=== PATIENT | female | born 1995 | race Caucasian/White ===

== ENCOUNTER → 2020-07-02 12:12 | Outpatient (CLI) | payer OTHER, SELFPAY ==
[2020-07-02 16:44] LABS: HIV 1 & 2 Ab/Ag 4th Gen Combo NEGATIVE (NEGATIVE)
[2020-07-03 04:36] LABS: RPR Screen Non Reactive (Non Reactive)
== END ==
PROVIDERS: PCP Family Medicine; Referring Provider Obstetrics & Gynecology; Visit Provider Obstetrics & Gynecology
DX: Z00.00 Encounter for general adult medical examination without abnormal findings (principal)
CPT/HCPCS: 36415; 86592; 87389; 87491; 87591

== ENCOUNTER 2020-12-21 12:11 | Emergency (ER) | payer OTHER, SELFPAY ==
[2020-12-21 12:30] VITALS: BP 133/78; PULSE 80; RESP 18; TEMP 36.6; O2SAT 99
[2020-12-21 13:10] LABS: Add Manual Diff / Slide Review NO; Basophils Absolute Auto 0 /uL (0-100); Basophils Percent Auto 0.6 % (0-2); Eosinophils Absolute Auto 0 /uL (0-450); Eosinophils Percent Auto 0.6 % (2-4); Hematocrit 43.8 % (36-46); Hemoglobin 14.6 g/dL (12.0-16.0); Lymphocytes Absolute Auto 1800 /uL (1100-4500); Lymphocytes Percent Auto 26.6 % (25-40); Mean Corpuscular HGB Conc 33.4 % (30-36); Mean Corpuscular Hemoglobin 28.9 PG (26-34); Mean Corpuscular Volume 86.6 fL (80-100); Monocytes Absolute Auto 500 /uL (0-900); Monocytes Percent Auto 7.8 % (3-14); Neutrophils Absolute Auto 4300 /uL (1500-7000); Neutrophils Percent Auto 64.4 % (50-75); Platelet Count 240 X10^3/uL (150-400); Red Blood Cell Count 5.05 X10^6/uL (4.0-5.2); Red Cell Distribution Width 12.9 % (11.6-14.8); White Blood Cell Count 6.6 X10^3/uL (4.5-11.0)
[2020-12-21 13:20] LABS: UR Morphine/Opiate cutoff 300 Negative (Negative); Ur Creatinine Normal (Normal); Ur Specific Gravity Normal (Normal); Urine Amphetamines Negative (Negative); Urine Barbiturates Negative (Negative); Urine Benzodiazepines Negative (Negative); Urine Cocaine Negative (Negative); Urine MDMA Negative (Negative); Urine Methadone Negative (Negative); Urine Methamphetamines Negative (Negative); Urine Oxycodone Negative (Negative); Urine Phencyclidine Negative (Negative); Urine Tetrahydrocannabinol Negative (Negative); Urine Tricyclic Antidepressant Negative (Negative); Urine pH Normal (Normal)
[2020-12-21 13:24] LABS: Acetaminophen < 10 ug/mL (10-30); Alanine Aminotransferase 9 IU/L (<35); Albumin Globulin Ratio 1.5 (1.0-2.8); Alkaline Phosphatase 61 U/L (38-126); Aspartate Aminotransferase 24 IU/L (14-36); BUN Creatinine Ratio 21.7 (6-22); Bilirubin Total 0.4 mg/dL (0.2-1.3); Blood Urea Nitrogen 15 mg/dL (7-17); Calcium 9.6 mg/dL (8.4-10.2); Carbon Dioxide 24 mmol/L (22-32); Chloride 102 mmol/L (98-107); Estimated Glomerular Filt Rate > 60.0 mL/min (>60); Ethanol (ETOH) < 10 mg/dL; Globulin 3.4 g/dL (1.7-4.1); Glucose 94 mg/dL (70-100); HEMOLYSIS < 15 (0-50); Potassium 3.9 mmol/L (3.4-5.1); Salicylate < 1.0 mg/dL (<20); Sodium 137 mmol/L (137-145); Total Protein 8.4 g/dL (6.3-8.2)
[2020-12-21 13:40] LABS: Free T4, Direct Thyroxine 1.17 ng/dL (0.78-2.19)
[2020-12-21 13:54] LABS: Thyroid Stimulating Hormone 0.944 uIU/mL (0.47-4.68)
--- NOTE | 2020-12-21 14:28 | P.CONS_ITS ---
History of Present Illness Consult details Date Patient Seen: 12/21/20 Time Patient Seen: 13:15 Chief complaint: SI Reason for consult: Psychiatric Evaluation; scheduled with Dr. Diego at time of presentation Requesting provider: Jackie Delaney Narrative: [facility] SUMMARY: 25F referred to [facility] by Dr. Anthony for anxiety & bipolar 2 symptoms. Initial visit with care technician completed. Main symptoms include some risky behavior, h/o hypersomnolence, mood swings, significant variation in sleep Safety: h/o passive thoughts but no active concerns upon [facility] admission Enrolled in [facility] 07/09/20; seeing ÁNGEL Ceja for therapy & coordination with Dr. Anthony for medication. Started lamotrigine Jul 2020 & recently increased to 100mg; sertraline 50mg also started early November 2020 INTERVIEW: CC: the suicidal thoughts got really intense -Mood: Pt presents with worsening SI in the past few days, today fearful she would kill herself using exercise machine at home. Brought herself to the ED, and let the ED know she was scheduled with myself at 1pm (arrived to ED just before that). Agrees for me to do brief interview in the ED today. States that her knows she is here. Feels that this worsening came on quickly ?last week was good?. Started feeling worse over the weekend, states this is worst SI has ever been. Started sertraline as prescribed by Dr. Anthony 50mg along with increase in lamotrigine to 100mg. Had dizziness & feeling off after starting sertraline; had to lie down, didn?t take at least one day she had to drive because worried about dizziness with driving. Left message with PCPs team on Monday & stopped sertraline & these physical things resolved. Denies current paranoia or hallucinations; reports paranoia in August of last year. Doesn?t correlate things getting worse right when she started sertraline. -Sleep: reports sleeping fine, denies decrease in sleep over the last few days or last week. -Anxiety: not bad here in ED ?its like I don?t care enough to be anxious, expresses understanding that the ED team can give medication for anxiety if getting severe in the ED Willing for voluntary admission if team thinks this is the best plan. Would like me to discuss process of evaluation in ED & inpatient treatment in case that is treatment decision. PSYCHIATRIC HISTORY: Previous diagnoses/treatment: depression, anxiety, anorexia, bulimia; clarified no previous diagnosis of ADHD (had sleep study around 2014 & diagnosed with hypersomnia & that?s why Concerta was prescribed); no previous inpatient treatment Suicide attempts: denies Medication trials: Lexapro 10mg -15mg for 2-3 years (helped); Dr. Anthony's notes mentions Family History: Per CM Initial note: Mental Health:: Both sisters high anxiety, 1 sister has borderline personality disorder. Mother and maternal grandmother have depression. Substance Use/Abuse:: Maternal side of the family - drug and alcohol use. Meds Home Medications and Allergies Home Medications Medication Instructions Recorded Confirmed Type lamotrigine 100 mg tablet,extended 100 mg PO DAILY #90 tab 12/01/20 12/21/20 Rx release 24 hr rizatriptan [Maxalt] 10 mg PO ONCE PRN 12/21/20 12/21/20 History Allergies Allergy/AdvReac Type Severity Reaction Status Date / Time sulfamethoxazole Allergy Severe Hives Verified 12/21/20 12:35 [From Bactrim] trimethoprim [From Bactrim] Allergy Severe Hives Verified 12/21/20 12:35 Exam Vital Signs (past 8 hours): - 12/21/20 12:30 Temperature 97.9 F Pulse Rate 80 Respiratory Rate 18 Blood Pressure 133/78 Pulse Oximetry 99 Oxygen Delivery Method Room Air Narrative Exam Narrative: MENTAL STATUS EXAM Appearance: Neatly groomed with long hair, wearing scrubs, appears stated age Behavior: cooperative, limited eye contact, +psychomotor slowing, no tremor or involuntary movements observed Speech: soft, slight slowing, monotone Mood: down Affect: Congruent with content, flattened Thought Process: somewhat guarded Thought Content: +SI with plan/intent; denies HI, denies paranoia or hallucinations Attention: Attentive to interview Orientation: Oriented to person place and time Memory: Intact for interview, not formally tested Insight: Fair Judgment: Fair Objective Labs Result Diagrams: 12/21/20 12:50 12/21/20 12:50 Labs: Laboratory Results - last 24 hr 12/21/20 12/21/20 12/21/20 12:16 12:50 12:50 WBC 6.6 RBC 5.05 Hgb 14.6 Hct 43.8 MCV 86.6 MCH 28.9 MCHC 33.4 RDW 12.9 Plt Count 240 Neut % (Auto) 64.4 Lymph % (Auto) 26.6 [place] % (Auto) 7.8 Eos % (Auto) 0.6 L Baso % (Auto) 0.6 Neut # (Auto) 4300 Lymph # (Auto) 1800 [place] # (Auto) 500 Eos # (Auto) 0 Baso # (Auto) 0 Sodium 137 Potassium 3.9 Chloride 102 Carbon Dioxide 24 BUN 15 Creatinine 0.69 Estimated GFR > 60.0 BUN/Creatinine Ratio 21.7 Glucose 94 Calcium 9.6 Total Bilirubin 0.4 AST 24 ALT 9 Alkaline Phosphatase 61 Total Protein 8.4 H Albumin 5.0 Globulin 3.4 Albumin/Globulin Ratio 1.5 TSH Free T4 Salicylates < 1.0 U Opiates 300ng/mL cut Negative Ur Oxycodone Screen Negative Urine Methadone Screen Negative Acetaminophen < 10 L Ur Barbiturates Screen Negative U Tricyclic Antidepress Negative Ur Phencyclidine Scrn Negative Ur Amphetamines Screen Negative U Methamphetamines Scrn Negative Ur MDMA Scrn (Ecstasy) Negative U Benzodiazepines Scrn Negative Urine Cocaine Screen Negative U Marijuana (THC) Screen Negative Ethyl Alcohol < 10 12/21/20 12:50 WBC RBC Hgb Hct MCV MCH MCHC RDW Plt Count Neut % (Auto) Lymph % (Auto) [place] % (Auto) Eos % (Auto) Baso % (Auto) Neut # (Auto) Lymph # (Auto) [place] # (Auto) Eos # (Auto) Baso # (Auto) Sodium Potassium Chloride Carbon Dioxide BUN Creatinine Estimated GFR BUN/Creatinine Ratio Glucose Calcium Total Bilirubin AST ALT Alkaline Phosphatase Total Protein Albumin Globulin Albumin/Globulin Ratio TSH 0.944 Free T4 1.17 Salicylates U Opiates 300ng/mL cut Ur Oxycodone Screen Urine Methadone Screen Acetaminophen Ur Barbiturates Screen U Tricyclic Antidepress Ur Phencyclidine Scrn Ur Amphetamines Screen U Methamphetamines Scrn Ur MDMA Scrn (Ecstasy) U Benzodiazepines Scrn Urine Cocaine Screen U Marijuana (THC) Screen Ethyl Alcohol Assessment & Plan Assessment and plan (1) Bipolar 2 disorder: Status: Acute (2) Suicidal ideation: Status: Acute Assessment & Plan narrative: Mila Turcios is a 25-year-old female enrolled in [facility] seeing ABNER Ceja for therapy, presenting to the ED today for acutely worsening SI. My evaluation today is consistent with relatively severe depressive symptoms with active SI, and warrants inpatient treatment. She was consistently agreeable to inpatient treatment during my interview today, but if that changes & she is not willing to pursue can consider DCR referral. Diagnostically, we are possibly seeing worsening of bipolar disorder, not yet on adequate mood stabilizer with potential of destabilization from recent trial of sertraline, although psychosocial factors such as her being gone recently also play a role. Will likely need to work on transfer from [facility] to specialty level mental health care, such as Psychiatry Clinic, for more active management. [facility] team can help coordinate this upon discharge and she has scheduled visits established with ABNER Ceja. RECOMMENDATIONS: - Pursue inpatient psychiatric treatment for acute SI; consider DCR referral if pt no longer willing - I encouraged patient to remain on lamotrigine even if going to the hospital, so that she doesn't have to start over from initial dose if restarting in the future - Follow-up with [facility] team upon discharge & we can help facilitate connection to higher level of care Thank you for involving me in the care of this patient. If you have any questions or concerns, you can contact our clinic [phone] or ED ABNER has my personal contact information.
--- NOTE | 2020-12-21 14:32 | ED_ITS ---
HPI - Psych <ANGELICA Watson - Last Filed: 12/21/20 20:36> General Chief Complaint: Psychiatric Symptoms Stated Complaint: SI Time Seen by Provider: 12/21/20 12:53 Source: patient Mode of arrival: Ambulatory Limitations: no limitations History of Present Illness HPI Narrative: The patient is a 25-year-old female nonsmoker with history of depression who presents with a chief complaint of suicidal ideation with a plan. She states that she would like to kill herself, thought about hanging herself from a weight bench. She states that she has felt depressed in the past, but never like this. She endorses hopelessness, sleeping all the time, states she is not eating and drinking normally. She was scheduled for an appoint with Dr. Diego this afternoon, but came to the emergency department instead. She states she thinks she needs help. The patient was on sertraline, last week states that she had a bad reaction to it and is now on Lamictal. She states her is out of town and she is lonely. Related Data Home Medications Medication Instructions Recorded Confirmed rizatriptan [Maxalt] 10 mg PO ONCE PRN 12/21/20 12/21/20 Previous Rx's Medication Instructions Recorded lamotrigine 100 mg tablet,extended 100 mg PO DAILY #90 tab 12/01/20 release 24 hr Allergies Allergy/AdvReac Type Severity Reaction Status Date / Time sulfamethoxazole Allergy Severe Hives Verified 12/21/20 12:35 [From Bactrim] trimethoprim [From Bactrim] Allergy Severe Hives Verified 12/21/20 12:35 Review of Systems <ANGELICA Watson - Last Filed: 12/21/20 20:36> Review of Systems Narrative: GENERAL: Denies chills, fatigue, malaise, fever, sweats. HEENT: Denies sinus pain, ear pain, sore throat, difficulty swallowing, dizziness. RESPIRATORY: Denies dyspnea, cough, wheezing, hemoptysis, sputum. CARDIOVASCULAR: Denies chest pain, palpitations, orthopnea, edema, GASTROINTESTINAL: Denies nausea, vomiting, abdominal pain, diarrhea, constipation, melena. : Denies dysuria, frequency, incontinence, hematuria, urinary retention. MUSCULOSKELETAL: denies weakness, joint pain, or bony pain SKIN: Denies rash, skin lesions, or other NEUROLOGIC: Denies weakness, headache, numbness, change in speech, confusion, seizures, incoordination. PSYCHIATRIC:: See HPI 12 point review of systems is negative except for those stated above Patient History <ANGELICA Watson - Last Filed: 12/21/20 20:36> Medical History (Updated 12/21/20 @ 17:52 by Thuan Diego DO) Anxiety Dysmenorrhea Hypersomnolence disorder Social History Smoking Status: Never smoker second hand exposure: No alcohol intake: current substance use type: does not use Smoking Status: Never smoker alcohol intake frequency: 0-2 drinks per day Substance Use Type: does not use Exam <ANGELICA Watson - Last Filed: 12/21/20 20:36> Narrative Exam Narrative: GENERAL: This is a well-nourished, well-developed patient, in no acute distress HEAD: Atraumatic. Normocephalic. No temporal or scalp tenderness. EYES: Pupils equal round and reactive. Extraocular motions intact. No scleral icterus. No injection or drainage. ENT: Nose without bleeding, purulent drainage or septal hematoma. See HPI. Airway patent. NECK: Trachea midline. No JVD or lymphadenopathy. Supple, nontender, no meningeal signs. CARDIOVASCULAR: Regular rate and rhythm RESPIRATORY: Clear to auscultation. Breath sounds equal bilaterally. No wheezes, rales, or rhonchi. No cough. No increased respiratory effort. No accessory muscle use. GASTROINTESTINAL: Abdomen soft, non-tender, nondistended. No hepato- splenomegaly, or palpable masses. No guarding. EXTREMITIES: No clubbing, cyanosis, or edema. No joint tenderness, effusion, or edema noted. BACK: Nontender without deformity or crepitance. No flank tenderness. NEURO: AOx3. Flat affect, reduced eye contact, uses one-word answers. SKIN: No rash or erythema on visible Initial Vital Signs Initial Vital Signs: Vital Signs Temperature 97.9 F 12/21/20 12:30 Pulse Rate 80 12/21/20 12:30 Respiratory Rate 18 12/21/20 12:30 Blood Pressure 133/78 12/21/20 12:30 Pulse Oximetry 99 12/21/20 12:30 <Daryn Wadsworth DO - Last Filed: 12/22/20 04:37> Initial Vital Signs Initial Vital Signs: Vital Signs Temperature 97.9 F 12/21/20 12:30 Pulse Rate 80 12/21/20 12:30 Respiratory Rate 18 12/21/20 12:30 Blood Pressure 133/78 12/21/20 12:30 Pulse Oximetry 99 12/21/20 12:30 Scores <ANGELICA Watson - Last Filed: 12/21/20 20:36> GCS [place] coma scale eye opening: Spontaneous Bert coma scale verbal response: Orientated [place] coma scale motor response: Obey commands Bert coma scale total score: 15 Course <ANGELICA Watson - Last Filed: 12/21/20 20:36> Orders Ordered: Discontinued Medications Ibuprofen (Ibuprofen 400 Mg Tablet) 800 mg PO NOW ONE Stop: 12/21/20 16:05 Last Admin: 12/21/20 16:13 Dose: 800 mg Documented by: CAMILLE Lamotrigine (Lamotrigine 100 Mg Tablet) 100 mg PO NOW ONE Stop: 12/21/20 19:29 Last Admin: 12/21/20 20:26 Dose: 100 mg Documented by: CHRISTI Vital Signs Vital signs: Vital Signs - 8 hr 12/21/20 19:11 Temperature 99.4 F Pulse Rate 93 H Respiratory Rate 18 Blood Pressure 152/93 H Pulse Oximetry 100 <Daryn Wadsworth DO - Last Filed: 12/22/20 04:37> Orders Ordered: Discontinued Medications Ibuprofen (Ibuprofen 400 Mg Tablet) 800 mg PO NOW ONE Stop: 12/21/20 16:05 Last Admin: 12/21/20 16:13 Dose: 800 mg Documented by: CAMILLE Lamotrigine (Lamotrigine 100 Mg Tablet) 100 mg PO NOW ONE Stop: 12/21/20 19:29 Last Admin: 12/21/20 20:26 Dose: 100 mg Documented by: CHRISTI Vital Signs Vital signs: Vital Signs - 8 hr 12/21/20 19:11 Temperature 99.4 F Pulse Rate 93 H Respiratory Rate 18 Blood Pressure 152/93 H Pulse Oximetry 100 MDM - Psych <ANGELICA Watson - Last Filed: 12/21/20 20:36> Lab Data Result diagrams: 12/21/20 12:50 12/21/20 12:50 Labs: Lab Results 12/21/20 12/21/20 12/21/20 Range/Units 12:16 12:50 12:50 WBC 6.6 (4.5-11.0) X10^3/uL RBC 5.05 (4.0-5.2) X10^6/uL Hgb 14.6 (12.0-16.0) g/dL Hct 43.8 (36-46) % MCV 86.6 (80-100) fL MCH 28.9 (26-34) PG MCHC 33.4 (30-36) % RDW 12.9 (11.6-14.8) % Plt Count 240 (150-400) X10^3/uL Neut % (Auto) 64.4 (50-75) % Lymph % (Auto) 26.6 (25-40) % Christian % (Auto) 7.8 (3-14) % Eos % (Auto) 0.6 L (2-4) % Baso % (Auto) 0.6 (0-2) % Neut # (Auto) 4300 (6872-2457) /uL Lymph # (Auto) 1800 (8654-9202) /uL Christian # (Auto) 500 (0-900) /uL Eos # (Auto) 0 (0-450) /uL Baso # (Auto) 0 (0-100) /uL Sodium 137 (137-145) mmol/L Potassium 3.9 (3.4-5.1) mmol/L Chloride 102 (98-107) mmol/L Carbon Dioxide 24 (22-32) mmol/L BUN 15 (7-17) mg/dL Creatinine 0.69 (0.52-1.04) mg/dL Estimated GFR > 60.0 (>60) mL/min BUN/Creatinine Ratio 21.7 (6-22) Glucose 94 (70-100) mg/dL Calcium 9.6 (8.4-10.2) mg/dL Total Bilirubin 0.4 (0.2-1.3) mg/dL AST 24 (14-36) IU/L ALT 9 (<35) IU/L Alkaline Phosphatase 61 (38-126) U/L Total Protein 8.4 H (6.3-8.2) g/dL Albumin 5.0 (3.5-5.0) g/dL Globulin 3.4 (1.7-4.1) g/dL Albumin/Globulin Ratio 1.5 (1.0-2.8) TSH (0.47-4.68) uIU/mL Free T4 (0.78-2.19) ng/dL Salicylates < 1.0 (<20) mg/dL U Opiates 300ng/mL cut Negative (Negative) Ur Oxycodone Screen Negative (Negative) Urine Methadone Screen Negative (Negative) Acetaminophen < 10 L (10-30) ug/mL Ur Barbiturates Screen Negative (Negative) U Tricyclic Antidepress Negative (Negative) Ur Phencyclidine Scrn Negative (Negative) Ur Amphetamines Screen Negative (Negative) U Methamphetamines Scrn Negative (Negative) Ur MDMA Scrn (Ecstasy) Negative (Negative) U Benzodiazepines Scrn Negative (Negative) Urine Cocaine Screen Negative (Negative) U Marijuana (THC) Screen Negative (Negative) Ethyl Alcohol < 10 ( - 10) mg/dL SARS-CoV-2 (PCR) (Negative) 12/21/20 12/21/20 Range/Units 12:50 15:03 WBC (4.5-11.0) X10^3/uL RBC (4.0-5.2) X10^6/uL Hgb (12.0-16.0) g/dL Hct (36-46) % MCV (80-100) fL MCH (26-34) PG MCHC (30-36) % RDW (11.6-14.8) % Plt Count (150-400) X10^3/uL Neut % (Auto) (50-75) % Lymph % (Auto) (25-40) % Christian % (Auto) (3-14) % Eos % (Auto) (2-4) % Baso % (Auto) (0-2) % Neut # (Auto) (3132-5242) /uL Lymph # (Auto) (6552-2656) /uL Christian # (Auto) (0-900) /uL Eos # (Auto) (0-450) /uL Baso # (Auto) (0-100) /uL Sodium (137-145) mmol/L Potassium (3.4-5.1) mmol/L Chloride (98-107) mmol/L Carbon Dioxide (22-32) mmol/L BUN (7-17) mg/dL Creatinine (0.52-1.04) mg/dL Estimated GFR (>60) mL/min BUN/Creatinine Ratio (6-22) Glucose (70-100) mg/dL Calcium (8.4-10.2) mg/dL Total Bilirubin (0.2-1.3) mg/dL AST (14-36) IU/L ALT (<35) IU/L Alkaline Phosphatase (38-126) U/L Total Protein (6.3-8.2) g/dL Albumin (3.5-5.0) g/dL Globulin (1.7-4.1) g/dL Albumin/Globulin Ratio (1.0-2.8) TSH 0.944 (0.47-4.68) uIU/mL Free T4 1.17 (0.78-2.19) ng/dL Salicylates (<20) mg/dL U Opiates 300ng/mL cut (Negative) Ur Oxycodone Screen (Negative) Urine Methadone Screen (Negative) Acetaminophen (10-30) ug/mL Ur Barbiturates Screen (Negative) U Tricyclic Antidepress (Negative) Ur Phencyclidine Scrn (Negative) Ur Amphetamines Screen (Negative) U Methamphetamines Scrn (Negative) Ur MDMA Scrn (Ecstasy) (Negative) U Benzodiazepines Scrn (Negative) Urine Cocaine Screen (Negative) U Marijuana (THC) Screen (Negative) Ethyl Alcohol ( - 10) mg/dL SARS-CoV-2 (PCR) Negative (Negative) Point of Care Testing Test Results Negative Urine Dip Bedside Urine Glucose Negative Bedside Urine Bilirubin - Negative Bedside Urine Ketone +/- 5 Urine Specific [place] 1.030 Bedside Urine Occult Blood - Negative Bedside Urine pH 6.0 Bedside Urine Protein - Negative Bedside Urine Urobilinogen - Negative Bedside Urine Nitrite - Negative Bedside Urine Leukocytes - Negative Esterase MDM Narrative Medical decision making narrative: The patient is a 25-year-old female with history of depression who presents with a chief complaint of suicidal ideation with a plan. She presents with very flat affect, endorses hopelessness, uses one word answers and avoids eye contact. She was supposed to have an appoint with Dr. Diego today, who kindly came to the emergency department to see the patient during appointment time. The patient appears to be open for voluntary admission, which I think the patient would benefit from given her evaluation. She has also seen and evaluated by emergency department [employer] the, patient was accepted for transfer to [facility] in the morning. She was given food during her stay in the ER, I did order her 100 mg Lamictal for night time. Patient spoke with Stalin LEVINE several times throughout the day. States she is okay with waiting in the morning for transfer. She remains voluntary. Patient signed out to Dr. Wadsworth at 8:30 p.m.. <Daryn Wadsworth, DO - Last Filed: 12/22/20 04:37> Lab Data Labs: Lab Results 12/21/20 12/21/20 12/21/20 Range/Units 12:16 12:50 12:50 WBC 6.6 (4.5-11.0) X10^3/uL RBC 5.05 (4.0-5.2) X10^6/uL Hgb 14.6 (12.0-16.0) g/dL Hct 43.8 (36-46) % MCV 86.6 (80-100) fL MCH 28.9 (26-34) PG MCHC 33.4 (30-36) % RDW 12.9 (11.6-14.8) % Plt Count 240 (150-400) X10^3/uL Neut % (Auto) 64.4 (50-75) % Lymph % (Auto) 26.6 (25-40) % Christian % (Auto) 7.8 (3-14) % Eos % (Auto) 0.6 L (2-4) % Baso % (Auto) 0.6 (0-2) % Neut # (Auto) 4300 (1060-5478) /uL Lymph # (Auto) 1800 (1989-8337) /uL Christian # (Auto) 500 (0-900) /uL Eos # (Auto) 0 (0-450) /uL Baso # (Auto) 0 (0-100) /uL Sodium 137 (137-145) mmol/L Potassium 3.9 (3.4-5.1) mmol/L Chloride 102 (98-107) mmol/L Carbon Dioxide 24 (22-32) mmol/L BUN 15 (7-17) mg/dL Creatinine 0.69 (0.52-1.04) mg/dL Estimated GFR > 60.0 (>60) mL/min BUN/Creatinine Ratio 21.7 (6-22) Glucose 94 (70-100) mg/dL Calcium 9.6 (8.4-10.2) mg/dL Total Bilirubin 0.4 (0.2-1.3) mg/dL AST 24 (14-36) IU/L ALT 9 (<35) IU/L Alkaline Phosphatase 61 (38-126) U/L Total Protein 8.4 H (6.3-8.2) g/dL Albumin 5.0 (3.5-5.0) g/dL Globulin 3.4 (1.7-4.1) g/dL Albumin/Globulin Ratio 1.5 (1.0-2.8) TSH (0.47-4.68) uIU/mL Free T4 (0.78-2.19) ng/dL Salicylates < 1.0 (<20) mg/dL U Opiates 300ng/mL cut Negative (Negative) Ur Oxycodone Screen Negative (Negative) Urine Methadone Screen Negative (Negative) Acetaminophen < 10 L (10-30) ug/mL Ur Barbiturates Screen Negative (Negative) U Tricyclic Antidepress Negative (Negative) Ur Phencyclidine Scrn Negative (Negative) Ur Amphetamines Screen Negative (Negative) U Methamphetamines Scrn Negative (Negative) Ur MDMA Scrn (Ecstasy) Negative (Negative) U Benzodiazepines Scrn Negative (Negative) Urine Cocaine Screen Negative (Negative) U Marijuana (THC) Screen Negative (Negative) Ethyl Alcohol < 10 ( - 10) mg/dL SARS-CoV-2 (PCR) (Negative) 12/21/20 12/21/20 Range/Units 12:50 15:03 WBC (4.5-11.0) X10^3/uL RBC (4.0-5.2) X10^6/uL Hgb (12.0-16.0) g/dL Hct (36-46) % MCV (80-100) fL MCH (26-34) PG MCHC (30-36) % RDW (11.6-14.8) % Plt Count (150-400) X10^3/uL Neut % (Auto) (50-75) % Lymph % (Auto) (25-40) % Christian % (Auto) (3-14) % Eos % (Auto) (2-4) % Baso % (Auto) (0-2) % Neut # (Auto) (4237-7920) /uL Lymph # (Auto) (3201-3295) /uL Christian # (Auto) (0-900) /uL Eos # (Auto) (0-450) /uL Baso # (Auto) (0-100) /uL Sodium (137-145) mmol/L Potassium (3.4-5.1) mmol/L Chloride (98-107) mmol/L Carbon Dioxide (22-32) mmol/L BUN (7-17) mg/dL Creatinine (0.52-1.04) mg/dL Estimated GFR (>60) mL/min BUN/Creatinine Ratio (6-22) Glucose (70-100) mg/dL Calcium (8.4-10.2) mg/dL Total Bilirubin (0.2-1.3) mg/dL AST (14-36) IU/L ALT (<35) IU/L Alkaline Phosphatase (38-126) U/L Total Protein (6.3-8.2) g/dL Albumin (3.5-5.0) g/dL Globulin (1.7-4.1) g/dL Albumin/Globulin Ratio (1.0-2.8) TSH 0.944 (0.47-4.68) uIU/mL Free T4 1.17 (0.78-2.19) ng/dL Salicylates (<20) mg/dL U Opiates 300ng/mL cut (Negative) Ur Oxycodone Screen (Negative) Urine Methadone Screen (Negative) Acetaminophen (10-30) ug/mL Ur Barbiturates Screen (Negative) U Tricyclic Antidepress (Negative) Ur Phencyclidine Scrn (Negative) Ur Amphetamines Screen (Negative) U Methamphetamines Scrn (Negative) Ur MDMA Scrn (Ecstasy) (Negative) U Benzodiazepines Scrn (Negative) Urine Cocaine Screen (Negative) U Marijuana (THC) Screen (Negative) Ethyl Alcohol ( - 10) mg/dL SARS-CoV-2 (PCR) Negative (Negative) Point of Care Testing Test Results Negative Urine Dip Bedside Urine Glucose Negative Bedside Urine Bilirubin - Negative Bedside Urine Ketone +/- 5 Urine Specific [place] 1.030 Bedside Urine Occult Blood - Negative Bedside Urine pH 6.0 Bedside Urine Protein - Negative Bedside Urine Urobilinogen - Negative Bedside Urine Nitrite - Negative Bedside Urine Leukocytes - Negative Esterase Discharge Plan Departure Prescriptions: No Action lamotrigine 100 mg tablet extended release 24hr 100 mg PO DAILY Qty: 90 RF: 1 rizatriptan [Maxalt] 10 mg tablet 10 mg PO ONCE PRN (Reason: Migraine Headache) RF: 0 <Daryn Wadsworth DO - Last Filed: 12/22/20 04:37> Cosign ED Attending Cosignature Attestation: I was immediately available in the department for consultation. This documentation has been reviewed and I agree with assessment and plan. Supervised by Daryn Wadsworth DO
--- NOTE | 2020-12-21 14:52 | CM.SWNOTE ---
DAY CAMP COUNSELOR Assessment DAY CAMP COUNSELOR - International Recruiter Assessment DAY CAMP COUNSELOR - International Recruiter Assessment Start: 12/21/20 14:17 Freq: Status: Active Protocol: Document 12/21/20 14:18 CYNTHIA (Rec: 12/21/20 14:52 CYNTHIA [id number]) DAY CAMP COUNSELOR/International Recruiter Assessment Time Spent with Patient Start date 12/21/20 Visit Start Time 13:25 End date 12/21/20 Visit End Time 14:00 Total time Care Management spent on 35 patient visit-in minutes Mental Health Screening Include Onset, Duration, Intensity Presenting Problem Patient presents to this ED with SI with plan and means. Patient reports increasing symptoms of depression over past week, with significant increase in intensity of feelings of SI over past two days. Patient endorses increased sleep and decreased appetite over past week. Precipitating Event(s) Patient's left town for one week on 12/19. Patient was diagnosed with Bipolar disorder in July of 2020, and explains she began to notice symptoms consistent with bipolar disorder roughly 2 years ago. Patient Strengths Patient demonstrates good insight into current behavioral health presentation . Current Behavioral Health Provider(s) Dr. Diego, Psychiatrist. ( Include Facility, Provider, Ph. # [phone]) [phone] Radha Ceja, [facility], [facility] counselor Psych. Hx Mental Health and Chemical Patient endorses experiencing Dependency symptoms of bipolar for roughly 2 years. Patient states she cycles roughly 1x /mo. Patient denies any current ETOH use or other substance use or abuse. Family Hx of Behavioral Abuse None reported. Psychiatric Hospitalizations (date(s)/ None reported. location) Psychosocial information & Support Patient is a 25 y/o female who Systems lives with her . Patient describes as strong support during periods of depression, however, patient's is away from home for extended period of time due to employment in [employer] . Patient does not mention any other close friends, family, or other local support during assessment. School/Work Patient reports employment at [employer]. Legal Concerns Legal Matters - Outstanding Issues None reported. Mental Status Orientation (Person/Place/Time) Oriented x3 Stated Mood ok Affect (Congruent with Mood?) flat, stable, constricted range, consistent with stated mood. Thought Content - Specify/Describe No hallucinations, obsessions, Obsessions, Delusions, Hallucinations or delusions observed or reported. Thought Processes (Hniflxa-Nypusmiu-Qjfe Coherent Wwniaspw-Glwexkzl-Vucrkvllgk- Eycdqqexykyqrq-Aztzgmp-Cusfxneunrqo- Thought Blocking) Speech (Ofvnol-Tuie-Oaussjx-Rapid-Soft- Slow. DAY CAMP COUNSELOR notes 6+ second Loud-Pressured) delay between questions and response. Motor (Ootnni-Smelrcuei-Garb-Other) Normal Insight (Powa-Dfbv-Jwti/Limited) Good Judgement (Bcia-Xsob-Kkfd/Limited) Good Impulse Control (Adequate-Impaired) Adequate during assessment. Memory (Pqkcidrot-Waaumy-Gcdbgl, Intact for interview, not Impaired-Intact) formally assessed. Patient reports difficulty with memory during current episode of depression. Concentration (Intact-Impaired) Intact Attention (Intact-Impaired) Intact Behavior (Appropriate-Inappropriate) Appropriate Risk Assessment Suicidal Ideation (Plan) Yes Homicidal Ideation (Plan) No Comment Patient endorses SI with plan to kill herself by hanging. Patient reports she has a plan to hang herself from a bar that hangs from a squat bench at her home. Intervention Intervention ABNER Gant and ABNER Solis meet with patient. Patient and steam conditioner filling discuss patient's current SI, diagnosis of bipolar, and contributing factors including being away from home for 1 weeks. Patient describes increasing intensity with feelings of SI and describes plan to end her life to steam conditioner filling. Patient and steam conditioner filling discuss next steps. Patient describes she is feeling less safe with herself at home. steam conditioner filling and patient discuss inpatient. Patient agreeable to voluntary inpatient behavioral health stabilization for SI. steam conditioner filling consult with Dr. Diego, who met with patient immediately prior to steam conditioner filling meeting with patient. Dr. Diego indicates that patient is appropriate for inpatient treatment at this time. steam conditioner filling review the information above with ED provider GAGANDEEP Watson, who indicates agreement with plan to pursue inpatient treatment. Plan RA Plan steam conditioner filling will seek inpatient placement for patient. ABNER Cardona
[2020-12-21 15:38] LABS: COVID19 -Nasal RAPID Negative (Negative)
[2020-12-21] MEDS: IBUPROFEN 400 MG TABLET 800 MG PO (16:13)
--- NOTE | 2020-12-21 16:44 | PC.NURSE ---
Pt mother on phone. RN to room to get permission to speak with her. Pt asks for hcellphone, RN gives it to her. Pt requests RN call her mother and assure her that Pt is safe. RN complies.
[2020-12-21 19:11] VITALS: BP 152/93; PULSE 93; RESP 18; TEMP 37.4; O2SAT 100
--- NOTE | 2020-12-21 19:53 | CM.SWNOTE ---
EXTRAS CASTING DIRECTOR note Following assessment, EXTRAS CASTING DIRECTOR contacts the following hospitals seeking placement for patient: -[facility]- no open beds. -[facility]- no open beds. EXTRAS CASTING DIRECTOR calls [facility] and is informed that they are accepting patients for following day. EXTRAS CASTING DIRECTOR faxes clinicals to [facility] and later in day is informed of patient's acceptance to [facility]. Details of acceptance are placed in comments box of EMR and listed below. Accepted to [facility]. Check in time 1030 12/22. Accepting provider: GAGANDEEP Sanchez. Nurse to Nurse [phone], ask for unit 2E. Intake contact Lory. EXTRAS CASTING DIRECTOR informs GAGANDEEP Watson and JONATHAN Sanchez of acceptance. JONATHAN Sanchez to arrange transport. EXTRAS CASTING DIRECTOR discusses acceptance with patient who indicates agreement and understanding with plan for transfer. Plan: Patient to transfer to [facility] to receive behavioral health stabilization. ABNER Cardona
[2020-12-21] MEDS: lamoTRIgine 100 MG TABLET PO (20:26)
[2020-12-22] MEDS: MECLIZINE HCL 12.5 MG TABLET 25 MG PO (09:01)
[2020-12-22 09:08] VITALS: BP 135/88; PULSE 88; RESP 16; O2SAT 100
== END 2020-12-22 09:10 ==
PROVIDERS: Emergency Medicine; Emergency Provider Emergency Medicine; PCP Family Medicine
DX: R45.851 Suicidal ideations (principal); F31.81 Bipolar II disorder; Z20.822 Contact with and (suspected) exposure to COVID-19
CPT/HCPCS: 80053; 80305; 80320; 80329; 81003; 81025; 84439; 84443; 85025; 87635; 99284; C9803; G0480

== ENCOUNTER → 2021-04-19 15:25 | Outpatient (CLI) | payer OTHER, SELFPAY ==
[2021-04-19 17:24] LABS: Add Manual Diff / Slide Review NO; Basophils Absolute Auto 0 /uL (0-100); Basophils Percent Auto 0.6 % (0-2); Eosinophils Absolute Auto 100 /uL (0-450); Eosinophils Percent Auto 1.4 % (2-4); Hematocrit 42.5 % (36-46); Hemoglobin 14.2 g/dL (12.0-16.0); Lymphocytes Absolute Auto 2600 /uL (1100-4500); Lymphocytes Percent Auto 38.4 % (25-40); Mean Corpuscular HGB Conc 33.4 % (30-36); Mean Corpuscular Hemoglobin 28.9 PG (26-34); Mean Corpuscular Volume 86.3 fL (80-100); Monocytes Absolute Auto 500 /uL (0-900); Monocytes Percent Auto 7.2 % (3-14); Neutrophils Absolute Auto 3600 /uL (1500-7000); Neutrophils Percent Auto 52.4 % (50-75); Platelet Count 228 X10^3/uL (150-400); Red Blood Cell Count 4.93 X10^6/uL (4.0-5.2); Red Cell Distribution Width 12.5 % (11.6-14.8); White Blood Cell Count 6.8 X10^3/uL (4.5-11.0)
[2021-04-19 18:11] LABS: Alanine Aminotransferase 8 IU/L (<35); Albumin 4.6 g/dL (3.5-5.0); Albumin Globulin Ratio 1.4 (1.0-2.8); Alkaline Phosphatase 53 U/L (38-126); Aspartate Aminotransferase 23 IU/L (14-36); BUN Creatinine Ratio 17.9 (6-22); Bilirubin Total 0.3 mg/dL (0.2-1.3); Blood Urea Nitrogen 12 mg/dL (7-17); Calcium 9.4 mg/dL (8.4-10.2); Carbon Dioxide 23 mmol/L (22-32); Chloride 105 mmol/L (98-107); Estimated Glomerular Filt Rate > 60.0 mL/min (>60); Globulin 3.2 g/dL (1.7-4.1); Glucose 90 mg/dL (70-100); HEMOLYSIS < 15 (0-50); Potassium 3.9 mmol/L (3.4-5.1); Sodium 138 mmol/L (137-145); Total Protein 7.8 g/dL (6.3-8.2)
[2021-04-19 18:45] LABS: TSH w/ Reflex to FT4 1.42 uIU/mL (0.47-4.68)
== END ==
PROVIDERS: PCP Family Medicine; Referring Provider Family Medicine; Visit Provider Family Medicine
DX: R42 Dizziness and giddiness (principal)
CPT/HCPCS: 36415; 80053; 84443; 85025

== ENCOUNTER → 2021-05-10 10:11 | Outpatient (CLI) | payer OTHER, SELFPAY ==
[2021-05-12 14:18] LABS: Lamotrigine Lamictal 7.3 ug/mL (2.0-20.0)
== END ==
PROVIDERS: PCP Family Medicine; Referring Provider Psychiatry & Neurology Psychiatry; Visit Provider Psychiatry & Neurology Psychiatry
DX: F31.81 Bipolar II disorder (principal); F41.9 Anxiety disorder, unspecified
CPT/HCPCS: 36415; 80175; 90792

== ENCOUNTER → 2021-06-28 16:20 | Outpatient (CLI) | payer OTHER, SELFPAY ==
[2021-06-28 21:20] LABS: Urine N gonorrhoeae NOT DETECTED
[2021-06-28 21:39] LABS: Urine Chlamydia NOT DETECTED
== END ==
PROVIDERS: PCP Family Medicine; Visit Provider Nurse Practitioner Family
DX: N34.3 Urethral syndrome, unspecified (principal); N89.8 Other specified noninflammatory disorders of vagina; R52 Pain, unspecified
CPT/HCPCS: 87086; 87210; 87491; 87591

== ENCOUNTER → 2021-08-06 13:38 | Outpatient (CLI) | payer OTHER, SELFPAY ==
--- NOTE | 2021-08-06 13:39 | DI.US.S_ITS ---
LIMITED ULTRASOUND OF LEFT BREAST: 08/06/2021 CLINICAL: Palpable lump. No prior exams were available for comparison. Real-time ultrasound of the left breast 5-7 o'clock region was performed. Olivo scale images of the real-time examination were reviewed. No significant abnormalities were seen sonographically in the left breast. IMPRESSION: NEGATIVE There is no sonographic evidence of malignancy. There is no abnormality seen in the left breast to correspond with the palpable abnormality in the inferior aspect, however, clinical followup is recommended. Follow-up with ACR/ACS guidelines. This exam was interpreted at Station ID: [id number]. Electronically Signed By: Brian shannon/caitlin:08/06/2021 15:05:59 letter sent: Clinical Evaluation Ultrasound BI-RADS: 1 Negative
== END ==
PROVIDERS: PCP Family Medicine; Referring Provider Family Medicine; Visit Provider Family Medicine
DX: N63.25 Unspecified lump in the left breast, overlapping quadrants (principal)
CPT/HCPCS: 76642

== ENCOUNTER → 2022-03-25 09:47 | Outpatient (CLI) | payer OTHER, SELFPAY ==
--- NOTE | 2022-03-25 09:48 | DI.US.S_ITS ---
PROCEDURE: US BREAST LT LIMITED COMPARISON: None. INDICATIONS: Pls reeval Palpable tender mass 7 o'clock; pain worsening FINDINGS: IMPRESSION: Dictated by: Shant Ibarra M.D. on 03/25/2022 at 10:31 Approved by: Shant Ibarra M.D. on 03/25/2022 at 10:32
--- NOTE | 2022-03-25 10:12 | DI.US.S_ITS ---
At the request of: MIKE DEVINE Procedure: US breast LT limited LIMITED ULTRASOUND OF LEFT BREAST: 03/25/2022 CLINICAL: Palpable left breast lump. Comparison is made to exam dated: 08/06/2021 [facility]. Color flow and real-time ultrasound of the left breast 6 o'clock region were performed. Olivo scale images of the real-time examination were reviewed. No significant abnormalities were seen sonographically in the left breast. IMPRESSION: NEGATIVE There is no sonographic evidence of malignancy. This exam was interpreted at Station ID: [id number]. Electronically Signed By: Shant Ibarra M.D., jr/caitlin:03/25/2022 10:31:54 letter sent: Normal Exam Ultrasound BI-RADS: 1 Negative
== END ==
PROVIDERS: PCP Family Medicine; Referring Provider Registered Nurse Diabetes Educator; Visit Provider Registered Nurse Diabetes Educator
DX: N63.25 Unspecified lump in the left breast, overlapping quadrants (principal)
CPT/HCPCS: 76642

== ENCOUNTER → 2022-08-24 08:11 | Outpatient (CLI) | payer OTHER, SELFPAY | PROVIDERS: PCP Family Medicine; Visit Provider Nurse Practitioner Family | DX: R30.0 Dysuria (principal) | CPT/HCPCS: 87077; 87086; 87186; 87210 ==

== ENCOUNTER → 2022-11-14 10:04 | Outpatient (CLI) | payer OTHER, SELFPAY ==
[2022-11-14 11:29] LABS: Alanine Aminotransferase 12 IU/L (<35); Albumin 4.4 g/dL (3.5-5.0); Albumin Globulin Ratio 1.5 (1.0-2.8); Alkaline Phosphatase 52 U/L (38-126); Aspartate Aminotransferase 24 IU/L (14-36); BUN Creatinine Ratio 16.9 (6-22); Bilirubin Total 0.6 mg/dL (0.2-1.3); Blood Urea Nitrogen 13 mg/dL (7-17); Carbon Dioxide 26 mmol/L (22-32); Chloride 103 mmol/L (98-107); Estimated Glomerular Filt Rate > 60 mL/min (>60); Glucose 83 mg/dL (70-100); HEMOLYSIS < 15 (0-50); Potassium 4.4 mmol/L (3.4-5.1); Sodium 138 mmol/L (137-145); Total Protein 7.4 g/dL (6.3-8.2)
== END ==
PROVIDERS: PCP Family Medicine; Referring Provider Psychiatry & Neurology Psychiatry; Visit Provider Psychiatry & Neurology Psychiatry
DX: F31.81 Bipolar II disorder (principal); Z79.899 Other long term (current) drug therapy
CPT/HCPCS: 36415; 80053; 80175

== ENCOUNTER → 2022-12-02 12:07 | Outpatient (CLI) | payer OTHER, SELFPAY ==
--- NOTE | 2022-12-02 12:08 | DI.US.S_ITS ---
PROCEDURE: US PELVIC COMPLETE INDICATIONS: Progressive painful menstrual cycles TECHNIQUE: Real-time scanning was performed of the pelvic organs, with image documentation. Additional endovaginal scanning was necessary due to incomplete visualization of the adnexal and endometrial structures by transabdominal scanning. COMPARISON: [facility], US, US PELVIC COMPLETE, 07/02/2020, 12:07. FINDINGS: Uterus: The uterus is normal in size at 7.6 x 3.3 x 4.4 cm. The myometrium is homogeneous. The endometrium measures 6 mm combined thickness. No abnormal vascularity can be seen along the endometrial stripe. Ovaries: The right ovary measures 3.5 x 2.4 x 2.5 cm, with a calculated ovarian volume of 10.9 cc. The right ovary demonstrates a 2.1 cm complex cyst. The left ovary measures 3.3 x 1.7 x 1.2 cm, with a calculated ovarian volume of 3.5 cc. Less than 12 follicles can be seen in each ovary. No adnexal masses are seen. Normal appearing arterial waveforms are confirmed to each ovary. Other: No pathologic free abdominal or pelvic fluid. IMPRESSION: No significant abnormality is seen. Negative for ovarian torsion. Likely corpus luteum seen involving the right ovary, 2.1 cm. If it would be clinically appropriate, a followup pelvic ultrasound could be considered in 6 weeks to assure resolution/ improvement. We strive to produce accurate, complete, and clear reports of imaging services. To assist us in improving patient care, this report was composed using standard report templates and voice recognition software. Therefore, it may contain abnormal punctuation, insertions and/or omissions. Occasional wrong-word or sound-alike substitutions may occur. Though we review the report and make efforts to correct it, we do recommend that the report be read carefully in proper context to recognize any text inaccuracies. Dictated by: Omar Iniguez M.D. on 12/02/2022 at 12:01 Approved by: Omar Iniguez M.D. on 12/02/2022 at 12:03
== END ==
PROVIDERS: PCP Family Medicine; Referring Provider Family Medicine; Visit Provider Family Medicine
DX: N92.0 Excessive and frequent menstruation with regular cycle (principal); N94.6 Dysmenorrhea, unspecified; N83.291 Other ovarian cyst, right side
CPT/HCPCS: 76830; 76856

== ENCOUNTER → 2022-12-23 16:32 | Outpatient (CLI) | payer OTHER, SELFPAY | PROVIDERS: PCP Family Medicine; Referring Provider Registered Nurse; Visit Provider Registered Nurse | DX: N39.0 Urinary tract infection, site not specified (principal) | CPT/HCPCS: 87086 ==

== ENCOUNTER → 2022-12-30 16:31 | Outpatient (CLI) | payer OTHER, SELFPAY | PROVIDERS: PCP Family Medicine; Visit Provider Registered Nurse | DX: N39.0 Urinary tract infection, site not specified (principal) | CPT/HCPCS: 87086 ==

== ENCOUNTER → 2023-01-02 09:25 | Outpatient (CLI) | payer OTHER, SELFPAY ==
[2023-01-02 10:46] LABS: Pregnancy Test Urine Negative (Negative)
[2023-01-02 17:41] LABS: Appearance Urine UA SL CLOUDY; Bilirubin Urine UA NEGATIVE (NEGATIVE); Color Urine UA YELLOW; Glucose Urine UA NEGATIVE (Negative); Ketones Urine UA NEGATIVE (NEGATIVE); Leukocyte Esterase Urine UA NEGATIVE (NEGATIVE); Nitrite Urine UA NEGATIVE (Negative); Occult Blood Urine UA NEGATIVE (Negative); Protein Urine UA NEGATIVE (Negative); Urobilinogen Urine UA 0.2 E.U./dL (0.2)
[2023-01-02 17:51] LABS: Bacteria Urine None Seen; Culture Indicated Urine Cult Not Indicated; RBC Urine None Seen (0-5/HPF); Squamous Epithelial Cell Urine 1-5 /HPF (0-5/HPF); WBC Urine 0-1/HPF (0-5/HPF)
[2023-01-02 19:03] LABS: Urine N gonorrhoeae NOT DETECTED
[2023-01-02 19:09] LABS: Urine Chlamydia NOT DETECTED
== END ==
PROVIDERS: PCP Family Medicine; Visit Provider Physician Assistant
DX: Z76.89 Persons encountering health services in other specified circumstances (principal); N89.8 Other specified noninflammatory disorders of vagina; R30.0 Dysuria
CPT/HCPCS: 81001; 81025; 87210; 87491; 87591

== ENCOUNTER → 2023-01-02 09:54 | Outpatient (CLI) | payer OTHER, SELFPAY ==
[2023-01-02 17:25] LABS: Hepatitis B Surface Antigen NEGATIVE s/c (NEGATIVE)
[2023-01-02 17:34] LABS: HIV 1 & 2 Ab/Ag 4th Gen Combo NEGATIVE (NEGATIVE); Hep C Virus Ab w/Reflex Quant NEGATIVE s/c (NEGATIVE)
[2023-01-03 06:28] LABS: RPR Screen Non Reactive (Non Reactive)
[2023-01-03 06:36] LABS: HSV 2 IGG AB < 0.91 index (0.00-0.90); HSV1IGG < 0.91 index (0.00-0.90)
== END ==
PROVIDERS: PCP Family Medicine; Referring Provider Physician Assistant; Visit Provider Physician Assistant
DX: Z76.89 Persons encountering health services in other specified circumstances (principal); N89.8 Other specified noninflammatory disorders of vagina; R30.0 Dysuria; F31.81 Bipolar II disorder; F41.9 Anxiety disorder, unspecified
CPT/HCPCS: 36415; 81001; 81025; 86592; 86695; 86696; 86803; 87210; 87340; 87389; 87491; 87591; 99214